=== PATIENT | female | born 2000 | race American Indian/Alaskan Native ===

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

== ENCOUNTER 2019-04-28 15:31 | Emergency (ER) | payer MEDICAID ==
--- NOTE | 2019-04-28 15:52 | Event Note ---
ED Screening Note ED Screening Note: SIMPLE DYSURIA NO CONCERN FOR STI This initial assessment/diagnostic orders/clinical plan/treatment(s) is/are subject to change based on patients health status, clinical progression and re- assessment by fellow clinical providers in the ED. Further treatment and workup at subsequent clinical providers discretion. Patient/guardian urged not to elope from the ED as their condition may be serious if not clinically assessed and managed. Initial orders include: UA UPREG
[2019-04-28 17:11] LABS: Mucus,Urine 1+ /HPF
[2019-04-28 17:16] LABS: HCG Qualitative,Urine Negative (Negative)
[2019-04-28 17:24] LABS: Bacteria,Urine 2+ /HPF (Negative); Bilirubin,Urine NEG (Negative); Blood,Urine MOD (Negative); Color,Urine Yellow (Yellow)
[2019-04-28 17:30] LABS: WBC,Urine > 182.0 /HPF (0.0-6.0)
--- NOTE | 2019-04-28 17:42 | Emergency Department Report ---
ED Female HPI - General Chief complaint: Urogenital-Female Stated complaint: FREQUENT URINATION Time Seen by Provider: 04/28/19 15:51 Source: patient Mode of arrival: Ambulatory Limitations: No Limitations - History of Present Illness Initial comments: This is a 19-year-old -[place] female who presents to the emergency room urinary frequency and suprapubic pressure for 3-4 days. No significant past medical history. Last menstrual period was 04/12/2019, A0. Patient denies any vaginal discharge, dysuria, nausea, vomiting, or back pain. MD Complaint: other (urinary frequency) Onset/Timin -: days(s) Location: suprapubic Radiation: non-radiating Severity: mild Severity scale (0 -10): 3 Quality: other (pressure) Consistency: intermittent Improves with: none Worsens with: urination Are you Now?: No Last Menstrual Period: 04/12/19 EDC: 01/17/20 Associated Symptoms: abdominal pain. denies: vaginal discharge, vaginal bleeding, nausea/vomiting, fever/chills, headaches, loss of appetite, dysuria, hematuria, rash, seizure, shortness of breath, syncope, weakness - Related Data Sexually active: Yes : 1 Para: 1 A: 0 Previous Rx's Medication Instructions Recorded Last Taken Type Acetaminophen/Codeine [Tylenol #3] 1 tab PO Q6H PRN #7 tab 08/26/16 Unknown Rx Ondansetron [Zofran Odt] 4 mg PO Q6HR PRN #14 tab.rapdis 08/26/16 Unknown Rx Nitrofurantoin [place]/M-Cryst 100 mg PO Q12HR #10 capsule 04/28/19 Unknown Rx [Macrobid CAP] Allergies Allergy/AdvReac Type Severity Reaction Status Date / Time No Known Allergies Allergy Verified 04/28/19 15:35 ED Review of Systems ROS: Stated complaint: FREQUENT URINATION Other details as noted in HPI Constitutional: denies: chills, fever Respiratory: denies: cough, shortness of breath, wheezing Cardiovascular: denies: chest pain, palpitations Gastrointestinal: abdominal pain. denies: nausea, diarrhea Genitourinary: frequency. denies: urgency, dysuria, discharge Musculoskeletal: denies: back pain, joint swelling, arthralgia Skin: denies: rash, lesions Neurological: denies: headache, weakness, paresthesias ED Past Medical Hx - Past Medical History Hx Hypertension: No Hx Diabetes: No Hx Deep Vein Thrombosis: No Hx Renal Disease: No Hx Sickle Cell Disease: No Hx Seizures: No Hx Asthma: No Hx HIV: No - Surgical History Past Surgical History?: No - Social History Smoking Status: Never Smoker Substance Use Type: None - Medications Home Medications: Home Medications Medication Instructions Recorded Confirmed Last Taken Type Acetaminophen/Codeine [Tylenol #3] 1 tab PO Q6H PRN #7 tab 08/26/16 Unknown Rx Ondansetron [Zofran Odt] 4 mg PO Q6HR PRN #14 tab.rapdis 08/26/16 Unknown Rx Nitrofurantoin [place]/M-Cryst 100 mg PO Q12HR #10 capsule 04/28/19 Unknown Rx [Macrobid CAP] ED Physical Exam - General Limitations: No Limitations General appearance: alert, in no apparent distress - Respiratory Respiratory exam: Present: normal lung sounds bilaterally. Absent: respiratory distress - Cardiovascular Cardiovascular Exam: Present: regular rate, normal rhythm. Absent: systolic murmur, diastolic murmur, rubs, gallop - GI/Abdominal GI/Abdominal exam: Present: soft, normal bowel sounds. Absent: distended, tenderness, guarding, rebound, rigid - Back Exam Back exam: Absent: CVA tenderness (R), CVA tenderness (L) - Neurological Exam Neurological exam: Present: alert, oriented X3 - Psychiatric Psychiatric exam: Present: normal affect, normal mood - Skin Skin exam: Present: warm, dry, intact, normal color. Absent: rash ED Course Vital Signs 04/28/19 15:52 Temperature 98.6 F Pulse Rate 65 Respiratory 16 Rate Blood Pressure 128/62 O2 Sat by Pulse 100 Oximetry ED Medical Decision Making - Lab Data Lab Results 04/28/19 Range/Units 16:44 Urine Color Yellow (Yellow) Urine Turbidity Cloudy (Clear) Urine pH 6.0 (5.0-7.0) Ur Specific [place] 1.026 (1.003-1.030) Urine Protein 100 mg/dl (Negative) mg/dL Urine Glucose (UA) Neg (Negative) mg/dL Urine Ketones Neg (Negative) mg/dL Urine Blood Mod (Negative) Urine Nitrite Neg (Negative) Urine Bilirubin Neg (Negative) Urine Ictotest Not Reportable Urine Urobilinogen 4.0 (<2.0) mg/dL Ur Leukocyte Esterase Lg (Negative) Urine WBC (Auto) > 182.0 H (0.0-6.0) /HPF Urine RBC (Auto) 40.0 (0.0-6.0) /HPF U Epithel Cells (Auto) 7.0 (0-13.0) /HPF Urine Bacteria (Auto) 2+ (Negative) /HPF Urine WBC Clumps 2+ /HPF Urine Mucus 1+ /HPF Urine Yeast (Budding) 2+ /HPF Urine HCG, Qual Negative (Negative) - Medical Decision Making Patient was examined by me. Patient is nontoxic appearing and stable. Vitals are normal. Obtained urinalysis and test. test is negative. Urinalysis positive for acute cystitis. Start metronidazole. Instructed to take Motrin for pain. Follow up with PCP or smart energy specialist with worsening symptoms. Patient discharged home in stable condition. Critical care attestation.: If time is entered above; I have spent that time in minutes in the direct care of this critically ill patient, excluding procedure time. ED Disposition Clinical Impression: Urinary frequency Acute cystitis Qualifiers: Hematuria presence: with hematuria Qualified Code(s): N30.01 - Acute cystitis with hematuria Disposition: TO HOME OR SELFCARE Is pt being admited?: No Does the pt Need Aspirin: No Condition: Stable Instructions: Urinary Tract Infection in Women (ED) Additional Instructions: Increased water intake. Complete full course of antibiotics as prescribed. Follow-up with the primary care doctor or return to the emergency room with worsening symptoms. Prescriptions: Nitrofurantoin [place]/M-Cryst [Macrobid CAP] 100 mg PO Q12HR #10 capsule Referrals: [facility] [Outside] - 3-5 Days [facility] [Outside] - 3-5 Days [facility] [Outside] - 3-5 Days Forms: Work/School Release Form(ED) Time of Disposition: 17:58
[2019-04-28 18:35] VITALS: BP 107/62
== END 2019-04-28 18:35 | disposition home or self-care (01) ==
LOC: ED 15:31
DX: N30.01 Acute cystitis with hematuria (principal)
CPT/HCPCS: 81001; 81025

== ENCOUNTER 2019-06-23 13:06 | Emergency (ER) | payer SELFPAY ==
[2019-06-23] MEDS ORDERED: REGLAN IV ONE (13:42)
[2019-06-23] MEDS ORDERED: BENADRYL IV STA (13:45)
[2019-06-23] MEDS ORDERED: NACL 0.9% 1000 ML 1,000 ML IV ONE (13:45)
[2019-06-23] MEDS ORDERED: VITAMIN B-6 PO STA (13:45)
--- NOTE | 2019-06-23 13:46 | Emergency Department Report ---
Blank Doc - Documentation Documentation: with Hyperemesis for the last 2 days. No abdominal pain This initial assessment/diagnostic orders/clinical plan/treatment(s) is/are subject to change based on patient's health status, clinical progression and re- assessment by fellow clinical providers in the ED. Further treatment and workup at subsequent clinical providers discretion. Patient/guardians urged not to elope from the ED as their condition may be serious if not clinically assessed and managed. Initial orders include: Labs and fluids
[2019-06-23 15:04] LABS: Basophils % (Auto) 0.3 % (0.0-1.8); Eosinophils % (Auto) 0.3 % (0.0-4.3); Hematocrit 39.3 % (30.3-42.9); Hemoglobin 13.3 gm/dl (10.1-14.3); Lymphocytes # (Auto) 1.9 K/mm3 (1.2-5.4); Lymphocytes % (Auto) 26.4 % (13.4-35.0); Mean Corpuscular HGB Conc 34 % (30-34); Mean Corpuscular Volume 88 fl (79-97); Monocytes # (Auto) 0.6 K/mm3 (0.0-0.8); Platelet Count 310 K/mm3 (140-440); Red Blood Count 4.47 M/mm3 (3.65-5.03); Red Cell Distribution Width 12.8 % (13.2-15.2)
[2019-06-23 15:06] LABS: Bilirubin,Urine Negative (Negative); Color,Urine Yellow (Yellow)
[2019-06-23 15:08] LABS: Blood,Urine Negative (Negative); Urobilinogen,Urine < 2.0 mg/dL (<2.0)
[2019-06-23 15:13] LABS: Bacteria,Urine 1+ /HPF (Negative); Mucus,Urine 3+ /HPF
[2019-06-23 15:14] LABS: Alanine Aminotransferase 11 units/L (7-56); Albumin 4.5 g/dL (3.9-5); BUN/Creatinine Ratio 14; Blood Urea Nitrogen 10 mg/dL (7-17); Calcium 9.5 mg/dL (8.4-10.2); Hemolysis Index 0
[2019-06-23 15:32] LABS: Bilirubin,Direct < 0.2 mg/dL (0-0.2)
[2019-06-23] MEDS ORDERED: D5NS 1,000 ML IV SCH (16:00)
--- NOTE | 2019-06-23 17:29 | Emergency Department Report ---
ED N/V/D HPI - General Chief complaint: Abdominal Pain Stated complaint: VOMITTING Time Seen by Provider: 06/23/19 13:41 Source: patient Mode of arrival: Ambulatory Limitations: No Limitations - History of Present Illness Initial comments: Patient is a 19-year-old [place] female who is approximately 7 weeks who is here stating that she said nausea vomiting or inability to keep anything down for past 3 days. Patient denies painful urination and vaginal bleeding or vaginal discharge. Patient states that she only has some very mild crampy di ffuse abdominal discomfort. - Related Data Previous Rx's Medication Instructions Recorded Last Taken Type Acetaminophen/Codeine [Tylenol #3] 1 tab PO Q6H PRN #7 tab 08/26/16 Unknown Rx Ondansetron [Zofran Odt] 4 mg PO Q6HR PRN #14 tab.rapdis 08/26/16 Unknown Rx Nitrofurantoin [place]/M-Cryst 100 mg PO Q12HR #10 capsule 04/28/19 Unknown Rx [Macrobid CAP] Metoclopramide [Reglan] 10 mg PO TID PRN #12 tab 06/23/19 Unknown Rx Allergies Allergy/AdvReac Type Severity Reaction Status Date / Time No Known Allergies Allergy Verified 04/28/19 15:35 ED Review of Systems ROS: Stated complaint: VOMITTING Other details as noted in HPI Comment: All other systems reviewed and negative ED Past Medical Hx - Past Medical History Previous Medical History?: No Hx Hypertension: No Hx Diabetes: No Hx Deep Vein Thrombosis: No Hx Renal Disease: No Hx Sickle Cell Disease: No Hx Seizures: No Hx Asthma: No Hx HIV: No - Surgical History Past Surgical History?: No - Social History Smoking Status: Never Smoker Substance Use Type: None - Medications Home Medications: Home Medications Medication Instructions Recorded Confirmed Last Taken Type Acetaminophen/Codeine [Tylenol #3] 1 tab PO Q6H PRN #7 tab 08/26/16 Unknown Rx Ondansetron [Zofran Odt] 4 mg PO Q6HR PRN #14 tab.rapdis 08/26/16 Unknown Rx Nitrofurantoin [place]/M-Cryst 100 mg PO Q12HR #10 capsule 04/28/19 Unknown Rx [Macrobid CAP] Metoclopramide [Reglan] 10 mg PO TID PRN #12 tab 10/25/19 Unknown Rx ED Physical Exam - General Limitations: No Limitations General appearance: alert, in no apparent distress - Head Head exam: Present: atraumatic, normocephalic - Eye Eye exam: Present: normal appearance. Absent: PERRL, EOMI - ENT ENT exam: Present: mucous membranes moist - Neck Neck exam: Present: normal inspection - Respiratory Respiratory exam: Present: normal lung sounds bilaterally. Absent: respiratory distress, wheezes, rales, rhonchi - Cardiovascular Cardiovascular Exam: Present: regular rate, normal rhythm. Absent: systolic murmur, diastolic murmur, rubs, gallop - GI/Abdominal GI/Abdominal exam: Present: soft, normal bowel sounds. Absent: distended, tenderness, guarding, rebound - Extremities Exam Extremities exam: Present: normal inspection - Back Exam Back exam: Present: normal inspection - Neurological Exam Neurological exam: Present: alert, oriented X3 - Psychiatric Psychiatric exam: Present: normal affect, normal mood - Skin Skin exam: Present: warm, dry, intact, normal color. Absent: rash ED Course Vital Signs 06/23/19 13:37 Temperature 98.1 F Pulse Rate 72 Respiratory 16 Rate Blood Pressure 123/65 O2 Sat by Pulse 98 Oximetry ED Medical Decision Making - Lab Data Result diagrams: 06/23/19 14:18 06/23/19 14:18 - Medical Decision Making Patient was hydrated given antiemetics and she is feeling better and was able tolerate by mouth towards the end of her ED visit. Critical care attestation.: If time is entered above; I have spent that time in minutes in the direct care of this critically ill patient, excluding procedure time. ED Disposition Clinical Impression: Hyperemesis gravidarum Disposition: TO HOME OR SELFCARE Is pt being admited?: No Does the pt Need Aspirin: No Condition: Stable Instructions: Abdominal Pain (ED) Referrals: PRIMARY CARE, [Primary Care Provider] - 3-5 Days Time of Disposition: 17:30
[2019-06-23 17:46] VITALS: BP 99/57
== END 2019-06-23 17:45 | disposition home or self-care (01) ==
LOC: ED 13:06
DX: O21.0 Mild hyperemesis gravidarum (principal); Z3A.01 Less than 8 weeks gestation of pregnancy; Z79.899 Other long term (current) drug therapy
CPT/HCPCS: 36415; 80048; 80076; 81001; 83690; 84702; 85025; 96374; 96375; 99283; J1200; J2765; J7030

== ENCOUNTER 2019-06-25 21:53 | Emergency (ER) | payer MEDICAID ==
--- NOTE | 2019-06-25 21:59 | Event Note ---
ED Screening Note ED Screening Note: pt presents for N/V that began 5 days ago was evaluated in the ED previously, states the medication is not working no diarrhea no vaginal bleeding no urinary sx LNMP: may 05 SALES DEVELOPMENT SPECIALIST: [facility] /P:1/A:0 no pmhx no allergies to meds This initial assessment/diagnostic orders/clinical plan/treatment(s) is/are subject to change based on patients health status, clinical progression and re- assessment by fellow clinical providers in the ED. Further treatment and workup at subsequent clinical providers discretion. Patient/guardian urged not to elope from the ED as their condition may be serious if not clinically assessed and managed. Initial orders include: labs, UA
[2019-06-25 22:32] LABS: Bilirubin,Urine NEG (Negative); Blood,Urine NEG (Negative); Color,Urine Amber (Yellow); Mucus,Urine 3+ /HPF
[2019-06-25] MEDS ORDERED: SODIUM CHLORIDE 0.9% 1000 ML 1,000 ML IV ONE (22:33)
[2019-06-25 22:48] LABS: Basophils % (Auto) 0.6 % (0.0-1.8); Eosinophils % (Auto) 0.2 % (0.0-4.3); Hematocrit 37.7 % (30.3-42.9); Hemoglobin 12.7 gm/dl (10.1-14.3); Lymphocytes # (Auto) 2.5 K/mm3 (1.2-5.4); Lymphocytes % (Auto) 28.3 % (13.4-35.0); Mean Corpuscular HGB Conc 34 % (30-34); Mean Corpuscular Volume 88 fl (79-97); Monocytes # (Auto) 0.8 K/mm3 (0.0-0.8); Monocytes % (Auto) 8.5 % (0.0-7.3); Platelet Count 287 K/mm3 (140-440); Red Blood Count 4.28 M/mm3 (3.65-5.03); Red Cell Distribution Width 12.5 % (13.2-15.2)
[2019-06-25 22:49] LABS: Basophils # (Auto) 0.1 K/mm3 (0.0-0.1)
[2019-06-25 22:55] LABS: Alanine Aminotransferase 10 units/L (7-56); Albumin 4.5 g/dL (3.9-5); BUN/Creatinine Ratio 13; Blood Urea Nitrogen 9 mg/dL (7-17); Calcium 9.5 mg/dL (8.4-10.2); Hemolysis Index 1
[2019-06-25] MEDS ORDERED: DEXTROSE 5% IN WATER 1,000 ML IV SCH (23:00)
--- NOTE | 2019-06-25 23:14 | Emergency Department Report ---
ED N/V/D HPI - General Chief complaint: Nausea/Vomiting/Diarrhea Stated complaint: NAUSEA,DEHYDRATED,VOMITING Time Seen by Provider: 06/25/19 21:57 Source: patient Mode of arrival: Ambulatory Limitations: No Limitations - History of Present Illness Initial comments: 19-year-old -[place] female patient complains of continued nausea and vomiting despite medication given from ED. Patient was seen here 06/23/2019 for hyperemesis gravidarum and was prescribed Reglan for home. Patient states his medication is not controlling her nausea and vomiting. She states mild general abdominal cramping. She denies dysuria, urinary frequency, vaginal discharge, or vaginal bleeding. - Related Data Previous Rx's Medication Instructions Recorded Last Taken Type Acetaminophen/Codeine [Tylenol #3] 1 tab PO Q6H PRN #7 tab 08/26/16 Unknown Rx Ondansetron [Zofran Odt] 4 mg PO Q6HR PRN #14 tab.rapdis 08/26/16 Unknown Rx Nitrofurantoin [place]/M-Cryst 100 mg PO Q12HR #10 capsule 04/28/19 Unknown Rx [Macrobid CAP] Metoclopramide [Reglan] 10 mg PO TID PRN #12 tab 06/23/19 Unknown Rx Promethazine HCl [Promethazine TAB] 12.5 - 25 mg PO Q6H PRN #30 tablet 06/26/19 Unknown Rx Allergies Allergy/AdvReac Type Severity Reaction Status Date / Time No Known Allergies Allergy Verified 04/28/19 15:35 ED Review of Systems ROS: Stated complaint: NAUSEA,DEHYDRATED,VOMITING Other details as noted in HPI Constitutional: denies: chills, fever Respiratory: denies: cough, shortness of breath, wheezing Cardiovascular: denies: chest pain, palpitations Gastrointestinal: as per HPI Genitourinary: denies: urgency, dysuria, frequency, hematuria, discharge Musculoskeletal: denies: back pain, joint swelling, arthralgia Skin: denies: rash, lesions Neurological: denies: headache, weakness, paresthesias ED Past Medical Hx - Past Medical History Previous Medical History?: No Hx Hypertension: No Hx Diabetes: No Hx Deep Vein Thrombosis: No Hx Renal Disease: No Hx Sickle Cell Disease: No Hx Seizures: No Hx Asthma: No Hx HIV: No - Surgical History Past Surgical History?: No - Social History Smoking Status: Never Smoker Substance Use Type: None - Medications Home Medications: Home Medications Medication Instructions Recorded Confirmed Last Taken Type Acetaminophen/Codeine [Tylenol #3] 1 tab PO Q6H PRN #7 tab 08/26/16 Unknown Rx Ondansetron [Zofran Odt] 4 mg PO Q6HR PRN #14 tab.rapdis 08/26/16 Unknown Rx Nitrofurantoin [place]/M-Cryst 100 mg PO Q12HR #10 capsule 04/28/19 Unknown Rx [Macrobid CAP] Metoclopramide [Reglan] 10 mg PO TID PRN #12 tab 06/23/19 Unknown Rx Promethazine HCl [Promethazine TAB] 12.5 - 25 mg PO Q6H PRN #30 tablet 06/26/19 Unknown Rx ED Physical Exam - General Limitations: No Limitations General appearance: alert, in no apparent distress - Head Head exam: Present: atraumatic, normocephalic - Eye Eye exam: Present: normal appearance - Respiratory Respiratory exam: Present: normal lung sounds bilaterally. Absent: respiratory distress - Cardiovascular Cardiovascular Exam: Present: regular rate, normal rhythm, normal heart sounds - GI/Abdominal GI/Abdominal exam: Present: soft, tenderness (minimal, diffuse, superficial ), normal bowel sounds. Absent: distended, guarding, rebound, rigid - Back Exam Back exam: Present: full ROM - Neurological Exam Neurological exam: Present: alert, oriented X3 - Psychiatric Psychiatric exam: Present: normal affect, normal mood - Skin Skin exam: Present: warm, dry, intact, normal color. Absent: rash, diaphoretic ED Course Vital Signs 06/25/19 21:58 Temperature 98.3 F Pulse Rate 77 Respiratory 20 Rate Blood Pressure 123/60 O2 Sat by Pulse 100 Oximetry ED Medical Decision Making - Lab Data Result diagrams: 06/25/19 22:27 06/25/19 22:27 Lab Results 06/25/19 06/25/19 06/25/19 Range/Units 22:09 22:27 22:27 WBC 8.9 (4.5-11.0) K/mm3 RBC 4.28 (3.65-5.03) M/mm3 Hgb 12.7 (10.1-14.3) gm/dl Hct 37.7 (30.3-42.9) % MCV 88 (79-97) fl MCH 30 (28-32) pg MCHC 34 (30-34) % RDW 12.5 L (13.2-15.2) % Plt Count 287 (140-440) K/mm3 Lymph % (Auto) 28.3 (13.4-35.0) % [place] % (Auto) 8.5 H (0.0-7.3) % Eos % (Auto) 0.2 (0.0-4.3) % Baso % (Auto) 0.6 (0.0-1.8) % Lymph # 2.5 (1.2-5.4) K/mm3 [place] # 0.8 (0.0-0.8) K/mm3 Eos # 0.0 (0.0-0.4) K/mm3 Baso # 0.1 (0.0-0.1) K/mm3 Seg Neutrophils % 62.4 (40.0-70.0) % Seg Neutrophils # 5.5 (1.8-7.7) K/mm3 Sodium 137 (137-145) mmol/L Potassium 3.5 L (3.6-5.0) mmol/L Chloride 98.7 (98-107) mmol/L Carbon Dioxide 23 (22-30) mmol/L Anion Gap 19 mmol/L BUN 9 (7-17) mg/dL Creatinine 0.7 (0.7-1.2) mg/dL Estimated GFR > 60 ml/min BUN/Creatinine Ratio 13 % Glucose 106 H (65-100) mg/dL Calcium 9.5 (8.4-10.2) mg/dL Total Bilirubin 0.50 (0.1-1.2) mg/dL AST 15 (5-40) units/L ALT 10 (7-56) units/L Alkaline Phosphatase 49 (35-129) units/L Total Protein 8.7 H (6.3-8.2) g/dL Albumin 4.5 (3.9-5) g/dL Albumin/Globulin Ratio 1.1 % Lipase 33 (13-60) units/L HCG, Quant (0-4) mIU/mL Urine Color [place] (Yellow) Urine Turbidity Slightly-cloudy (Clear) Urine pH 6.0 (5.0-7.0) Ur Specific [place] 1.034 H (1.003-1.030) Urine Protein 100 mg/dl (Negative) mg/dL Urine Glucose (UA) Neg (Negative) mg/dL Urine Ketones 80 (Negative) mg/dL Urine Blood Neg (Negative) Urine Nitrite Neg (Negative) Urine Bilirubin Neg (Negative) Urine Urobilinogen 4.0 (<2.0) mg/dL Ur Leukocyte Esterase Tr (Negative) Urine WBC (Auto) 16.0 H (0.0-6.0) /HPF Urine RBC (Auto) 8.0 (0.0-6.0) /HPF U Epithel Cells (Auto) 16.0 H (0-13.0) /HPF Urine Mucus 3+ /HPF 06/25/ Range/Units 22:27 WBC (4.5-11.0) K/mm3 RBC (3.65-5.03) M/mm3 Hgb (10.1-14.3) gm/dl Hct (30.3-42.9) % MCV (79-97) fl MCH (28-32) pg MCHC (30-34) % RDW (13.2-15.2) % Plt Count (140-440) K/mm3 Lymph % (Auto) (13.4-35.0) % [place] % (Auto) (0.0-7.3) % Eos % (Auto) (0.0-4.3) % Baso % (Auto) (0.0-1.8) % Lymph # (1.2-5.4) K/mm3 [place] # (0.0-0.8) K/mm3 Eos # (0.0-0.4) K/mm3 Baso # (0.0-0.1) K/mm3 Seg Neutrophils % (40.0-70.0) % Seg Neutrophils # (1.8-7.7) K/mm3 Sodium (137-145) mmol/L Potassium (3.6-5.0) mmol/L Chloride (98-107) mmol/L Carbon Dioxide (22-30) mmol/L Anion Gap mmol/L BUN (7-17) mg/dL Creatinine (0.7-1.2) mg/dL Estimated GFR ml/min BUN/Creatinine Ratio % Glucose (65-100) mg/dL Calcium (8.4-10.2) mg/dL Total Bilirubin (0.1-1.2) mg/dL AST (5-40) units/L ALT (7-56) units/L Alkaline Phosphatase (35-129) units/L Total Protein (6.3-8.2) g/dL Albumin (3.9-5) g/dL Albumin/Globulin Ratio % Lipase (13-60) units/L HCG, Quant [id number] H (0-4) mIU/mL Urine Color (Yellow) Urine Turbidity (Clear) Urine pH (5.0-7.0) Ur Specific [place] (1.003-1.030) Urine Protein (Negative) mg/dL Urine Glucose (UA) (Negative) mg/dL Urine Ketones (Negative) mg/dL Urine Blood (Negative) Urine Nitrite (Negative) Urine Bilirubin (Negative) Urine Urobilinogen (<2.0) mg/dL Ur Leukocyte Esterase (Negative) Urine WBC (Auto) (0.0-6.0) /HPF Urine RBC (Auto) (0.0-6.0) /HPF U Epithel Cells (Auto) (0-13.0) /HPF Urine Mucus /HPF - Medical Decision Making Patient here for hyperemesis gravidarum. Seen here for same 06/23/2019. States Reglan described for home is not working. No acute findings on blood work. Vitals are WNL. UA shows 16 WBCs, however also shows 16 epithelial cellslikely a dirty catch. Patient denies any dysuria or urinary frequency. Urine culture added. Patient tolerating by mouth after IV Reglan and Benadryl. Will DC home with Phenergan prescription and with STATE COMPTR[employer]LLER follow-up. Strict return precautions were discussed in detail with patient who states understanding. Critical care attestation.: If time is entered above; I have spent that time in minutes in the direct care of this critically ill patient, excluding procedure time. ED Disposition Clinical Impression: Hyperemesis gravidarum Disposition: DC-01 TO HOME OR SELFCARE Is pt being admited?: No Condition: Stable Prescriptions: Promethazine HCl [Promethazine TAB] 12.5 - 25 mg PO Q6H PRN #30 tablet PRN Reason: Nausea Referrals: TATO ALBERTS MD [Primary Care Provider] - 3-5 Days
[2019-06-25] MEDS ORDERED: POTASSIUM CHLORIDE ER 20 MEQ TAB PO ONE (23:15)
[2019-06-26 00:47] VITALS: BP 121/64
== END 2019-06-26 00:46 | disposition home or self-care (01) ==
LOC: ED 21:53
DX: O21.0 Mild hyperemesis gravidarum (principal); Z3A.01 Less than 8 weeks gestation of pregnancy
CPT/HCPCS: 36415; 80053; 81001; 83690; 84702; 85025; 87086; 96360; 99283; J7030

== ENCOUNTER 2019-07-04 16:46 | Emergency (ER) | payer MEDICAID ==
[2019-07-04 17:27] VITALS: BP 124/61
[2019-07-04] MEDS ORDERED: METOCLOPRAMIDE 10 MG/2 ML INJ IV ONE (22:22)
[2019-07-04] MEDS ORDERED: FAMOTIDINE 20 MG/2 ML INJ IV ONE (22:22)
[2019-07-04] MEDS ORDERED: SODIUM CHLORIDE 0.9% 1000 ML 1,000 ML IV ONE (22:22)
[2019-07-04] MEDS ORDERED: diphenhydrAMINE 50 MG/ML VIAL IV ONE (22:23)
[2019-07-04 22:50] LABS: Basophils # (Auto) 0.1 K/mm3 (0.0-0.1); Basophils % (Auto) 0.6 % (0.0-1.8); Eosinophils % (Auto) 0.2 % (0.0-4.3); Hematocrit 39.4 % (30.3-42.9); Hemoglobin 13.6 gm/dl (10.1-14.3); Lymphocytes # (Auto) 2.7 K/mm3 (1.2-5.4); Mean Corpuscular HGB Conc 35 % (30-34); Mean Corpuscular Volume 87 fl (79-97); Monocytes % (Auto) 11.2 % (0.0-7.3); Platelet Count 312 K/mm3 (140-440); Red Blood Count 4.51 M/mm3 (3.65-5.03); Red Cell Distribution Width 12.3 % (13.2-15.2)
[2019-07-04 23:05] LABS: Alanine Aminotransferase 8 units/L (7-56); Albumin 4.4 g/dL (3.9-5); BUN/Creatinine Ratio 18; Blood Urea Nitrogen 9 mg/dL (7-17); Calcium 9.5 mg/dL (8.4-10.2); Hemolysis Index 0
[2019-07-04] MEDS ORDERED: POTASSIUM CHLORIDE ER 20 MEQ TAB PO ONE (23:15)
[2019-07-05 00:57] LABS: Bacteria,Urine 2+ /HPF (Negative); Bilirubin,Urine NEG (Negative); Blood,Urine NEG (Negative); Color,Urine Amber (Yellow); Mucus,Urine 3+ /HPF
[2019-07-05] MEDS ORDERED: cefTRIAXone/NS 1 GM/50 ML 1 GM/50 ML BAG IV ONE (01:00)
--- NOTE | 2019-07-05 01:05 | Emergency Department Report ---
ED N/V/D HPI - General Chief complaint: Abdominal Pain Stated complaint: NAUSEA/WEAK/LIGHTHEADED/LOSS OF APPITITE/BACK PAIN Source: patient Mode of arrival: Ambulatory Limitations: No Limitations - History of Present Illness Initial comments: Patient is a A0 19-year-old, female who is approximately 9 weeks gestation presents to the ED with complaint of acute onset persistent intractable nausea and vomiting for the last 3 days with epigastric pain. Patient denies fever, c hills, diarrhea, dysuria, urinary frequency and urgency, vaginal bleeding, vaginal discharge, headache, chest pain, cough, sore throat or dizziness or back pain. MD complaint: nausea, vomiting, abdominal pain -: Sudden, days(s) (3) Description of Vomiting: food contents, watery Associated Abdominal Pain: Yes (epigastric pain) Location: epigastric Radiation: none Severity: severe Pain Scale: 7 Quality: cramping, aching Consistency: intermittent Improves with: none Worsens with: eating, vomiting Context: other (9 weeks gestation) Associated Symptoms: denies other symptoms, myalgias, loss of appetite, malaise, nausea/vomiting. denies: chest pain, cough, diaphoresis, fever/chills, headaches, rash, dysuria, shortness of breath, syncope, weakness, other - Related Data Previous Rx's Medication Instructions Recorded Last Taken Type Acetaminophen/Codeine [Tylenol #3] 1 tab PO Q6H PRN #7 tab 08/26/16 Unknown Rx Ondansetron [Zofran Odt] 4 mg PO Q6HR PRN #14 tab.rapdis 08/26/16 Unknown Rx Nitrofurantoin [place]/M-Cryst 100 mg PO Q12HR #10 capsule 04/28/19 Unknown Rx [Macrobid CAP] Metoclopramide [Reglan] 10 mg PO TID PRN #12 tab 06/23/19 Unknown Rx Promethazine HCl [Promethazine TAB] 12.5 - 25 mg PO Q6H PRN #30 tablet 06/26/19 Unknown Rx Dicyclomine [Bentyl] 20 mg PO Q6H PRN #24 tablet 07/05/19 Unknown Rx Famotidine [Pepcid] 20 mg PO Q12H #30 tablet 07/05/19 Unknown Rx Promethazine HCl [Phenergan SUPPOS] 25 mg RC Q4H PRN #30 supp.rect 07/05/19 Unknown Rx cephALEXin [Keflex] 500 mg PO Q8HR #30 cap 07/05/19 Unknown Rx Allergies Allergy/AdvReac Type Severity Reaction Status Date / Time No Known Allergies Allergy Verified 04/28/19 15:35 ED Review of Systems ROS: Stated complaint: NAUSEA/WEAK/LIGHTHEADED/LOSS OF APPITITE/BACK PAIN Other details as noted in HPI Constitutional: denies: chills, fever Eyes: denies: eye pain, eye discharge, vision change ENT: denies: ear pain, throat pain Respiratory: denies: cough, shortness of breath, wheezing Cardiovascular: denies: chest pain, palpitations Endocrine: no symptoms reported Gastrointestinal: abdominal pain, nausea, vomiting. denies: diarrhea, constipation, hematemesis Genitourinary: denies: urgency, dysuria, frequency, hematuria, discharge, dyspareunia Musculoskeletal: denies: back pain, joint swelling, arthralgia Skin: denies: rash, lesions Neurological: denies: headache, weakness, paresthesias Psychiatric: denies: anxiety, depression Hematological/Lymphatic: denies: easy bleeding, easy bruising ED Past Medical Hx - Past Medical History Hx Hypertension: No Hx Diabetes: No Hx Deep Vein Thrombosis: No Hx Renal Disease: No Hx Sickle Cell Disease: No Hx Seizures: No Hx Asthma: No Hx HIV: No - Surgical History Past Surgical History?: No - Social History Smoking Status: Never Smoker Substance Use Type: None - Medications Home Medications: Home Medications Medication Instructions Recorded Confirmed Last Taken Type Acetaminophen/Codeine [Tylenol #3] 1 tab PO Q6H PRN #7 tab 08/26/16 Unknown Rx Ondansetron [Zofran Odt] 4 mg PO Q6HR PRN #14 tab.rapdis 08/26/16 Unknown Rx Nitrofurantoin [place]/M-Cryst 100 mg PO Q12HR #10 capsule 04/28/19 Unknown Rx [Macrobid CAP] Metoclopramide [Reglan] 10 mg PO TID PRN #12 tab 06/23/19 Unknown Rx Promethazine HCl [Promethazine TAB] 12.5 - 25 mg PO Q6H PRN #30 tablet 06/26/19 Unknown Rx Dicyclomine [Bentyl] 20 mg PO Q6H PRN #24 tablet 07/05/19 Unknown Rx Famotidine [Pepcid] 20 mg PO Q12H #30 tablet 07/05/19 Unknown Rx Promethazine HCl [Phenergan SUPPOS] 25 mg RC Q4H PRN #30 supp.rect 07/05/19 Unknown Rx cephALEXin [Keflex] 500 mg PO Q8HR #30 cap 07/05/19 Unknown Rx ED Physical Exam - General Limitations: No Limitations General appearance: alert, in no apparent distress - Head Head exam: Present: atraumatic, normocephalic, normal inspection - Eye Eye exam: Present: normal appearance, PERRL, EOMI Pupils: Present: normal accommodation - ENT ENT exam: Present: normal exam, normal orophraynx, mucous membranes moist, TM's normal bilaterally, normal external ear exam - Neck Neck exam: Present: normal inspection, full ROM - Respiratory Respiratory exam: Present: normal lung sounds bilaterally. Absent: respiratory distress, wheezes, rales, rhonchi, stridor, chest wall tenderness, accessory muscle use, prolonged expiratory - Cardiovascular Cardiovascular Exam: Present: regular rate, normal rhythm, normal heart sounds. Absent: systolic murmur, diastolic murmur, rubs, gallop - GI/Abdominal GI/Abdominal exam: Present: soft, normal bowel sounds. Absent: tenderness, guarding, hyperactive bowel sounds, hypoactive bowel sounds, organomegaly, bruit - Extremities Exam Extremities exam: Present: normal inspection, full ROM, normal capillary refill - Back Exam Back exam: Present: normal inspection, full ROM. Absent: tenderness, CVA tenderness (R), muscle spasm, paraspinal tenderness - Neurological Exam Neurological exam: Present: alert, oriented X3, CN II-XII intact, normal gait, reflexes normal - Psychiatric Psychiatric exam: Present: normal affect, normal mood - Skin Skin exam: Present: warm, dry, intact, normal color. Absent: rash ED Course Vital Signs 07/04/19 17:23 Temperature 98.7 F Pulse Rate 75 Respiratory 18 Rate Blood Pressure 124/61 O2 Sat by Pulse 99 Oximetry - Reevaluation(s) Reevaluation #1: 07/05/19 01:04 This is a A0 19-year-old -Indian female who is approximately 9 weeks gestation and presented to the ED with intractable nausea and vomiting and epigastric pain for 3 days stating that she has not been keep anything down because of nausea and vomiting. Patient states that she has promethazine at home for nausea and vomiting but has not been able to take the medicine because of persistent nausea and vomiting. In the ED, patient is alert and oriented 3 and is not in distress with normal vital signs. Lab test results were reviewed and showed hyponatremia 134 mmol per liter, hypokalemia of 3.1 mmol per liter, [place] [address], lipase level of 68 and urinary tract infection in the urinalysis correct his elevated white blood cell count with a 2+ bacteria in the urine. Patient was treated in the ED for nausea and vomiting, also given normal saline 1 L IV bolus, also given potassium chloride 40 mEq by mouth 1, Rocephin 1 g IV 1 and Pepcid antacids. On reevaluation, patient felt better, with pain and nausea and vomiting resolving. Patient was discharged home on antibiotics, antiemetics and pain medications and advised to follow-up with her [employer] physician in 7-10 days for reevaluation or return to the ED immediately if symptoms get worse. Patient was advised to maintain a clear liquid diet for 12-24 hours and take medications accordingly. ED Medical Decision Making - Lab Data Result diagrams: 07/04/19 22:30 07/04/19 22:30 - Medical Decision Making This is a A0 19-year-old -Indian female who is approximately 9 weeks gestation and presented to the ED with intractable nausea and vomiting and epigastric pain for 3 days stating that she has not been keep anything down because of nausea and vomiting. Patient states that she has promethazine at home for nausea and vomiting but has not been able to take the medicine because of persistent nausea and vomiting. In the ED, patient is alert and oriented 3 and is not in distress with normal vital signs. Lab test results were reviewed and showed hyponatremia 134 mmol per liter, hypokalemia of 3.1 mmol per liter, [place] [address], lipase level of 68 and urinary tract infection in the urinalysis correct his elevated white blood cell count with a 2+ bacteria in the urine. Patient was treated in the ED for nausea and vomiting, also given normal saline 1 L IV bolus, also given potassium chloride 40 mEq by mouth 1, Rocephin 1 g IV 1 and Pepcid antacids. On reevaluation, patient felt better, with pain and nausea and vomiting resolving. Patient was discharged home on antibiotics, antiemetics and pain medications and advised to follow-up with her [employer] physician in 7-10 days for reevaluation or return to the ED immediately if symptoms get worse. Patient was advised to maintain a clear liquid diet for 12-24 hours and take medications accordingly. - Differential Diagnosis Hyperemesis gravidarum; GERD; Acute UTI; Dehydration Critical care attestation.: If time is entered above; I have spent that time in minutes in the direct care of this critically ill patient, excluding procedure time. ED Disposition Clinical Impression: Hyperemesis gravidarum with electrolyte imbalance, Acute urinary tract infection GERD (gastroesophageal reflux disease) Qualifiers: Esophagitis presence: without esophagitis Qualified Code(s): K21.9 - Gastro- esophageal reflux disease without esophagitis Disposition: TO HOME OR SELFCARE Is pt being admited?: No Does the pt Need Aspirin: No Condition: Stable Instructions: Abdominal Pain (ED), Urinary Tract Infection in Women (ED), Acute Nausea and Vomiting (ED) Additional Instructions: Maintain a clear liquid diet for 12-24 hours, take medications and follow up with the [employer] physician in 7-10 days for reevaluation. Return to the ED immediately if symptoms get worse. Prescriptions: Dicyclomine [Bentyl] 20 mg PO Q6H PRN #24 tablet PRN Reason: Pain , Severe (7-10) cephALEXin [Keflex] 500 mg PO Q8HR #30 cap Famotidine [Pepcid] 20 mg PO Q12H #30 tablet Promethazine HCl [Phenergan SUPPOS] 25 mg RC Q4H PRN #30 supp.rect PRN Reason: Nausea Referrals: PRIMARY CARE,MD [Primary Care Provider] - 3-5 Days Forms: Work/School Release Form(ED) Time of Disposition: 01:11 Print Language: TURKISH
== END 2019-07-05 01:33 | disposition home or self-care (01) ==
LOC: ED 16:46
DX: O21.1 Hyperemesis gravidarum with metabolic disturbance (principal); O23.41 Unspecified infection of urinary tract in pregnancy, first trimester; O99.611 Diseases of the digestive system complicating pregnancy, first trimester; K21.9 Gastro-esophageal reflux disease without esophagitis; Z79.899 Other long term (current) drug therapy; Z3A.09 9 weeks gestation of pregnancy
CPT/HCPCS: 36415; 80053; 81001; 83690; 84702; 85025; 87086; 96361; 96365; 96375; 99283; J0696; J1200; J2765; J7030

== ENCOUNTER 2019-07-20 11:13 | Inpatient (IN) | payer SELFPAY ==
--- NOTE | 2019-07-20 12:01 | Event Note ---
ED Screening Note Date of service: 07/20/19 Time: 11:59 ED Screening Note: 19 y o Female female with lmp of 05/05/19 presents with pelvic and back pain x yesterday denies vaginal bleed admits pain with urination This initial assessment/diagnostic orders/clinical plan/treatment(s) is/are nickerson bject to change based on patients health status, clinical progression and re- assessment by fellow clinical providers in the ED. Further treatment and workup at subsequent clinical providers discretion. Patient/guardian urged not to elope from the ED as their condition may be serious if not clinically assessed and managed. Initial orders include: ua, upt US
[2019-07-20] MEDS ORDERED: METOCLOPRAMIDE 10 MG/2 ML INJ IV ONE (13:09)
[2019-07-20] MEDS ORDERED: SODIUM CHLORIDE 0.9% 1000 ML 1,000 ML IV ONE ×2 (13:09→14:07)
[2019-07-20] MEDS ORDERED: ACETAMINOPHEN 325 MG TAB PO ONE (13:09)
[2019-07-20 13:10] LABS: HCG Qualitative,Urine Positive (Negative)
[2019-07-20 13:11] LABS: Basophils % (Auto) 0.6 % (0.0-1.8); Eosinophils % (Auto) 0.3 % (0.0-4.3); Hematocrit 42.6 % (30.3-42.9); Hemoglobin 14.7 gm/dl (10.1-14.3); Lymphocytes # (Auto) 1.6 K/mm3 (1.2-5.4); Lymphocytes % (Auto) 26.7 % (13.4-35.0); Mean Corpuscular HGB Conc 35 % (30-34); Mean Corpuscular Volume 86 fl (79-97); Monocytes # (Auto) 0.6 K/mm3 (0.0-0.8); Monocytes % (Auto) 10.2 % (0.0-7.3); Platelet Count 300 K/mm3 (140-440); Red Blood Count 4.94 M/mm3 (3.65-5.03); Red Cell Distribution Width 12.7 % (13.2-15.2)
[2019-07-20 13:12] LABS: Bacteria,Urine 1+ /HPF (Negative); Bilirubin,Urine NEG (Negative); Blood,Urine MOD (Negative); Color,Urine Yellow (Yellow); Mucus,Urine FEW /HPF
--- NOTE | 2019-07-20 13:22 | Ultrasound Report ---
ULTRASOUND OBSTETRIC INDICATION: Pelvic pain. Estimated clinical gestational age of 10 weeks, 6 days. TECHNIQUE: Transabdominal. COMPARISON: None available. FINDINGS: GESTATIONAL SAC: Well-defined oval shape and intrauterine in location. YOLK SAC: No significant abnormality. EMBRYO/FETUS: There is a single live intrauterine with a BPD of 1.58 cm, consistent with an age of 12 weeks, 2 days and a femur length of 0.74 cm, consistent with an estimated age of 12 weeks, 2 days. The heart rate is 168 bpm. There is a small area of subchorionic hemorrhage measuring 1.0 x 0.4 x 1.8 cm. ADNEXA: An indeterminate complex left ovarian cyst measures 2.1 x 1.2 x 1.4 cm. No additional signifi cant abnormality is seen. FREE FLUID: None. ADDITIONAL FINDINGS: None. IMPRESSION: 1. Single, living intrauterine with estimated sonographic age of 12 weeks, 2 day(s). 2. Small subchorionic hemorrhage. 3. Complex left ovarian cyst as above is likely benign. This finding can be reevaluated on the patien t's next scheduled OB ultrasound. Signer Name: Juan Whitlock MD Signed: 07/20/2019 1:18 PM Workstation Name: [id number]
[2019-07-20 13:32] LABS: BUN/Creatinine Ratio 10; Blood Urea Nitrogen 6 mg/dL (7-17); Calcium 10.1 mg/dL (8.4-10.2); Hemolysis Index 8
[2019-07-20] MEDS ORDERED: POTASSIUM CHLORIDE ER 20 MEQ TAB PO ONE (14:06)
--- NOTE | 2019-07-20 14:40 | Emergency Department Report ---
ED HPI - General Chief complaint: Abdominal Pain Stated complaint: 11 WKS /ABD PAIN Time Seen by Provider: 07/20/19 12:23 Source: patient, EMS Mode of arrival: Wheelchair Limitations: No Limitations - History of Present Illness Initial comments: This is a 19-year-old female nontoxic, well nourished in appearance, no acute signs of distress presents to the ED with c/o of pelvic pain, back pain, nausea and vomiting 1 week. Patient stated she is about 11 weeks . Denies any vaginal bleeding. Patient describes vomiting as food content. Patient denies any abdominal pain, chest pain, short of breath, fever, chills, headache, stiff neck, numbness or tingling. Patient denies any urinary symptoms. Patient denies any diarrhea or constipation. Patient denies any recent travels. Patient denies any drug allergies significant past medical history. MD Complaint: other (pelvic pain, back pain, nausea vomiting) -: week(s) (1) Location: pelvis Radiation: none Severity: mild Severity scale (0 -10): 8 Quality: cramping, aching Consistency: constant Improves with: none Worsens with: none Associated symptoms: nausea/vomiting. denies: vaginal bleeding, vaginal discharge, abdominal pain, dysuria, headache, vision changes, malaise, dysparuenia, rash, seizure, shortness of breath, syncope, weakness Vaginal bleeding: none Pre-estrellita care: none - Related Data Previous Rx's Medication Instructions Recorded Last Taken Type Acetaminophen/Codeine [Tylenol #3] 1 tab PO Q6H PRN #7 tab 08/26/16 Unknown Rx Ondansetron [Zofran Odt] 4 mg PO Q6HR PRN #14 tab.rapdis 08/26/16 Unknown Rx Nitrofurantoin [place]/M-Cryst 100 mg PO Q12HR #10 capsule 04/28/19 Unknown Rx [Macrobid CAP] Metoclopramide [Reglan] 10 mg PO TID PRN #12 tab 06/23/19 Unknown Rx Promethazine HCl [Promethazine TAB] 12.5 - 25 mg PO Q6H PRN #30 tablet 06/26/19 Unknown Rx Dicyclomine [Bentyl] 20 mg PO Q6H PRN #24 tablet 07/05/19 Unknown Rx Famotidine [Pepcid] 20 mg PO Q12H #30 tablet 07/05/19 Unknown Rx Promethazine HCl [Phenergan SUPPOS] 25 mg RC Q4H PRN #30 supp.rect 07/05/19 Unknown Rx cephALEXin [Keflex] 500 mg PO Q8HR #30 cap 07/05/19 Unknown Rx Allergies Allergy/AdvReac Type Severity Reaction Status Date / Time No Known Allergies Allergy Verified 04/28/19 15:35 ED Review of Systems ROS: Stated complaint: 11 WKS /ABD PAIN Other details as noted in HPI Constitutional: denies: chills, fever Eyes: denies: eye pain, eye discharge, vision change ENT: denies: ear pain, throat pain Respiratory: denies: cough, shortness of breath, wheezing Cardiovascular: denies: chest pain, palpitations Endocrine: no symptoms reported Gastrointestinal: nausea, vomiting, other (pelvic pain). denies: abdominal pain, diarrhea Genitourinary: denies: urgency, dysuria, discharge Musculoskeletal: back pain. denies: joint swelling, arthralgia Skin: denies: rash, lesions Neurological: denies: headache, weakness, paresthesias Psychiatric: denies: anxiety, depression Hematological/Lymphatic: denies: easy bleeding, easy bruising ED Past Medical Hx - Past Medical History Previous Medical History?: No Hx Hypertension: No Hx Diabetes: No Hx Deep Vein Thrombosis: No Hx Renal Disease: No Hx Sickle Cell Disease: No Hx Seizures: No Hx Asthma: No Hx HIV: No - Surgical History Past Surgical History?: No - Social History Smoking Status: Never Smoker Substance Use Type: None - Medications Home Medications: Home Medications Medication Instructions Recorded Confirmed Last Taken Type Acetaminophen/Codeine [Tylenol #3] 1 tab PO Q6H PRN #7 tab 08/26/16 Unknown Rx Ondansetron [Zofran Odt] 4 mg PO Q6HR PRN #14 tab.rapdis 08/26/16 Unknown Rx Nitrofurantoin [place]/M-Cryst 100 mg PO Q12HR #10 capsule 04/28/19 Unknown Rx [Macrobid CAP] Metoclopramide [Reglan] 10 mg PO TID PRN #12 tab 06/23/19 Unknown Rx Promethazine HCl [Promethazine TAB] 12.5 - 25 mg PO Q6H PRN #30 tablet 06/26/19 Unknown Rx Dicyclomine [Bentyl] 20 mg PO Q6H PRN #24 tablet 07/05/19 Unknown Rx Famotidine [Pepcid] 20 mg PO Q12H #30 tablet 07/05/19 Unknown Rx Promethazine HCl [Phenergan SUPPOS] 25 mg RC Q4H PRN #30 supp.rect 07/05/19 Unknown Rx cephALEXin [Keflex] 500 mg PO Q8HR #30 cap 07/05/19 Unknown Rx ED Physical Exam - General Limitations: No Limitations General appearance: alert, in no apparent distress - Head Head exam: Present: atraumatic, normocephalic - Eye Eye exam: Present: normal appearance - Neck Neck exam: Present: normal inspection, full ROM. Absent: tenderness, meningismus, lymphadenopathy - Respiratory Respiratory exam: Present: normal lung sounds bilaterally. Absent: respiratory distress, wheezes, rales, rhonchi, stridor, chest wall tenderness, accessory muscle use, decreased breath sounds, prolonged expiratory - Cardiovascular Cardiovascular Exam: Present: regular rate, normal rhythm, tachycardia, normal heart sounds. Absent: irregular rhythm - GI/Abdominal GI/Abdominal exam: Present: soft, normal bowel sounds. Absent: distended, tenderness, guarding, rebound, rigid, diminished bowel sounds - Extremities Exam Extremities exam: Present: normal inspection, full ROM, normal capillary refill. Absent: tenderness - Back Exam Back exam: Present: normal inspection, full ROM, paraspinal tenderness (lumbar paraspinal). Absent: tenderness, CVA tenderness (R), CVA tenderness (L), muscle spasm, vertebral tenderness, rash noted - Neurological Exam Neurological exam: Present: alert, oriented X3, normal gait - Psychiatric Psychiatric exam: Present: normal affect, normal mood - Skin Skin exam: Present: warm, dry, intact, normal color. Absent: rash ED Course Vital Signs 07/20/19 11:58 Temperature 98.4 F Pulse Rate 100 H Respiratory 18 Rate Blood Pressure 105/69 O2 Sat by Pulse 100 Oximetry - Reevaluation(s) Reevaluation #1: 07/20/19 14:38 Patient is speaking in full sentences with no signs of distress noted. - Consultations Consultation #1: 07/20/19 14:38 Patient has been consulted with Josie Pereira about patient history, physical exam, and labs and agrees for admission. Consultation #2: 07/20/19 15:25 Patient has been consulted with Dr. Moseley about patient history, physical exam, and labs and accepts patient to services. ED Medical Decision Making - Lab Data Result diagrams: 07/20/19 12:53 07/20/19 12:53 - Medical Decision Making This is a 19-year-old female that presents with hyperemesis gravidarum.. Patient is stable and was examined by me. There is no abdominal tenderness. Negative signs of symptoms of appendicitis, cholecystitis or acute abdomen. OB ultrasound obtained and within normal limits. Patient is admitted with Dr. Landeros. Labs obtained. UA obtained. At time of admission, the patient does not seem toxic or ill in appearance. No acute signs of distress noted. Patient agrees to admission treatment plan of care. No further questions noted by the patient. Critical care attestation.: If time is entered above; I have spent that time in minutes in the direct care of this critically ill patient, excluding procedure time. ED Disposition Clinical Impression: Metabolic acidosis, Hyperemesis gravidarum Disposition: OP ADMIT IP TO THIS HOSP Is pt being admited?: Yes Condition: Stable Referrals: PRIMARY CARE, [Primary Care Provider] - 3-5 Days
[2019-07-20] MEDS ORDERED: SODIUM CHLORIDE 0.9% 100 ML IVPB IV SCH (18:04)
[2019-07-20] MEDS: SODIUM CHLORIDE 0.9% 1000 ML 1,000 ML IV SCH (19:08)
[2019-07-20] MEDS: ONDANSETRON 4 MG/2 ML INJ IV SCH (19:38)
[2019-07-20] MEDS ORDERED: ZOLPIDEM 5 MG TAB PO PRN (22:00)
[2019-07-21] MEDS: SODIUM CHLORIDE 0.9% 1000 ML 1,000 ML IV SCH (02:55)
[2019-07-21] MEDS: ONDANSETRON 4 MG/2 ML INJ IV SCH ×3 (04:00→20:52)
[2019-07-21 05:12] LABS: Alanine Aminotransferase 7 units/L (7-56); Albumin 3.2 g/dL (3.9-5); BUN/Creatinine Ratio 10; Blood Urea Nitrogen 4 mg/dL (7-17); Hemolysis Index 17
[2019-07-21] MEDS ORDERED: POTASSIUM CHLORIDE ER 20 MEQ TAB PO ONE (08:00)
[2019-07-21] MEDS: PRENATAL VIT27-FE FUMARATE-FOLIC ACID VIT TAB PO SCH (09:14)
--- NOTE | 2019-07-21 10:55 | History and Physical Report ---
History of Present Illness Date of examination: 07/21/19 Date of admission: 07/20/19 16:03 Chief complaint: Nausea, vomiting,and early History of present illness: This is a 19-year-old female nontoxic, well nourished in appearance, no acute signs of distress presents to the ED with c/o of pelvic pain, back pain, nausea and vomiting 1 week. Patient stated she is about 11 weeks . Denies any vaginal bleeding. Patient describes vomiting as food content. Patient denies any abdominal pain, chest pain, short of breath, fever, chills, headache, stiff neck, numbness or tingling. Patient has pain on urination . Patient denies any diarrhea or constipation. Patient denies any recent travels. Patient denies any drug allergies significant past medical history. Past History - Obstetrical History : 1 Medications and Allergies Allergies Allergy/AdvReac Type Severity Reaction Status Date / Time No Known Allergies Allergy Verified 04/28/19 15:35 Home Medications Medication Instructions Recorded Confirmed Last Taken Type No Known Home Medications [No 07/20/19 07/20/19 Unknown History Reported Home Medications] Active Meds: Active Medications Sodium Chloride (Nacl 0.9% 1000 Ml) 1,000 mls @ 125 mls/hr IV DIRECT ROCHELLE Last Admin: 07/21/19 02:55 Dose: 125 mls/hr Documented by: Potassium Chloride (Kcl 10meq/100ml) 10 meq in 100 mls @ 100 mls/hr IV Q1H COUNT INCLUDES THE [facility] Multivitamins/Iron/Calcium ( Vitamin) 1 each PO QDAY COUNT INCLUDES THE [facility] Last Admin: 07/21/19 09:14 Dose: 1 each Documented by: Ondansetron HCl (Zofran) 4 mg IV Q8H COUNT INCLUDES THE [facility] Last Admin: 07/21/19 04:00 Dose: 4 mg Documented by: Sodium Chloride (Nacl 0.9%) 125 ml IV DIRECT ROCHELLE Zolpidem Tartrate (Ambien) 5 mg PO QHS PRN PRN Reason: Sleep Review of Systems Genitourinary: dysuria, pelvic pain - Vital Signs Vital signs: Vital Signs Temp Pulse Resp BP Pulse Ox 98.4 F 100 H 18 105/69 100 07/20/19 11:58 07/20/19 11:58 07/20/19 11:58 07/20/19 11:58 07/20/19 11:58 Temp Pulse Resp BP Pulse Ox 98.2 F 73 20 89/55 100 07/21/19 04:38 07/21/19 04:38 07/21/19 04:38 07/21/19 04:38 07/21/19 04:38 - Physical Exam Abdomen: Positive: normal appearance, soft. Negative: guarding Results Result Diagrams: 07/20/19 12:53 07/21/19 04:20 Abnormal lab results 07/20/19 07/20/19 07/20/19 Range/Units 12:22 12:53 12:53 Hgb 14.7 H (10.1-14.3) gm/dl MCHC 35 H (30-34) % RDW 12.7 L (13.2-15.2) % Brooks % (Auto) 10.2 H (0.0-7.3) % VBG pH (7.320-7.420) Sodium 134 L (137-145) mmol/L Potassium 3.2 L (3.6-5.0) mmol/L Chloride 94.7 L (98-107) mmol/L Carbon Dioxide 16 L (22-30) mmol/L BUN 6 L (7-17) mg/dL Creatinine 0.6 L (0.7-1.2) mg/dL Calcium (8.4-10.2) mg/dL Alkaline Phosphatase (35-129) units/L Total Protein (6.3-8.2) g/dL Albumin (3.9-5) g/dL HCG, Quant (0-4) mIU/mL Urine WBC (Auto) 14.0 H (0.0-6.0) /HPF U Epithel Cells (Auto) 20.0 H (0-13.0) /HPF Urine HCG, Qual Positive A (Negative) 07/20/19 07/20/19 07/21/19 Range/Units 12:53 14:27 04:20 Hgb (10.1-14.3) gm/dl MCHC (30-34) % RDW (13.2-15.2) % Brooks % (Auto) (0.0-7.3) % VBG pH 7.243 L (7.320-7.420) Sodium 133 L (137-145) mmol/L Potassium 3.2 L (3.6-5.0) mmol/L Chloride (98-107) mmol/L Carbon Dioxide 15 L (22-30) mmol/L BUN 4 L (7-17) mg/dL Creatinine 0.4 L (0.7-1.2) mg/dL Calcium 8.0 L D (8.4-10.2) mg/dL Alkaline Phosphatase 33 L (35-129) units/L Total Protein 6.0 L (6.3-8.2) g/dL Albumin 3.2 L (3.9-5) g/dL HCG, Quant 51039 H (0-4) mIU/mL Urine WBC (Auto) (0.0-6.0) /HPF U Epithel Cells (Auto) (0-13.0) /HPF Urine HCG, Qual (Negative) All other labs normal. Assessment and Plan - Patient Problems (1) UTI (urinary tract infection) Current Visit: Yes Status: Acute Plan to address problem: Will rx empiric ampicillin for probable UTI.
[2019-07-21] MEDS ORDERED: AMPICILLIN 2 GM in SODIUM CHLORIDE 0.9% 50 ML IV ONE (10:57)
[2019-07-21] MEDS ORDERED: POTASSIUM CHLORIDE 10 MEQ 10 MEQ/100 ML BAG IV SCH (11:00)
[2019-07-21] MEDS ORDERED: AMPICILLIN 2 GM in SODIUM CHLORIDE 0.9% 100 ML IV ONE (12:00)
[2019-07-21] MEDS ORDERED: AMPICILLIN/NS 2 GM/100 ML 2 GM/100 ML BAG IV ONE (12:00)
[2019-07-21] MEDS ORDERED: AMPICILLIN/NS 1 GM/50 ML 1 GM/50 ML BAG IV SCH (14:00)
[2019-07-21] MEDS: POTASSIUM CHLORIDE 10 MEQ 10 MEQ/100 ML BAG IV SCH ×3 (14:00→17:55)
[2019-07-21] MEDS: AMPICILLIN/NS 1 GM/50 ML 1 GM/50 ML BAG IV SCH (20:52)
[2019-07-22] MEDS: AMPICILLIN/NS 1 GM/50 ML 1 GM/50 ML BAG IV SCH ×3 (02:21→11:37)
[2019-07-22] MEDS: SODIUM CHLORIDE 0.9% 1000 ML 1,000 ML IV SCH (02:21)
[2019-07-22] MEDS: ONDANSETRON 4 MG/2 ML INJ IV SCH (05:54)
[2019-07-22 10:32] LABS: BUN/Creatinine Ratio 10; Blood Urea Nitrogen 3 mg/dL (7-17); Calcium 8.3 mg/dL (8.4-10.2); Hemolysis Index 0
[2019-07-22] MEDS ORDERED: POTASSIUM CHLORIDE ER 20 MEQ TAB PO ONE (10:53)
[2019-07-22] MEDS: PRENATAL VIT27-FE FUMARATE-FOLIC ACID VIT TAB PO SCH (11:36)
--- NOTE | 2019-07-22 12:21 | Progress Note ---
Assessment and Plan - Patient Problems (1) 11 weeks gestation of Onset Date: 07/22/19 Current Visit: Yes Status: Acute Plan to address problem: A: IUP @ 11 weeks Hyperemesis - resolved UTI - resolved P: May go home today. (2) Hyperemesis gravidarum Onset Date: 07/22/19 Current Visit: Yes Status: Resolved (3) UTI (urinary tract infection) Onset Date: 07/22/19 Current Visit: Yes Status: Resolved Qualifiers: Urinary tract infection type: acute cystitis Hematuria presence: without hematuria Qualified Code(s): N30.00 - Acute cystitis without hematuria Subjective - Subjective Date of service: 07/22/19 Principal diagnosis: IUP @ 11 weeks; UTI Interval history: This is a 19-year-old female nontoxic, well nourished in appearance, no acute signs of distress presented to the ED with c/o of pelvic pain, back pain, nausea and vomiting 1 week. Patient stated she is about 11 weeks . Denies any vaginal bleeding. Patient describes vomiting as food content. Patient denies any abdominal pain, chest pain, short of breath, fever, chills, headache, stiff neck, numbness or tingling. Patient has pain on urination . Patient denies any diarrhea or constipation. Patient denies any recent travels. Patient denies any drug allergies significant past medical history. Since admission she is feeling much better. She is tolerating a reg diet without nausea or vomiting, and ready to go home. Patient reports: no new complaints, no loss of fluid, no vaginal bleeding, no contractions Objective - Vital Signs Vital Signs: Vital Signs - 12hr 07/22/19 07/22/19 07/22/19 00:25 05:27 07:36 Temperature 98.2 F 98.8 F 98.5 F Pulse Rate 99 H 84 86 Respiratory 20 20 18 Rate Blood Pressure 106/55 100/53 100/57 O2 Sat by Pulse 99 100 99 Oximetry 07/22/19 08:00 Temperature Pulse Rate Respiratory 20 Rate Blood Pressure O2 Sat by Pulse Oximetry - Exam Breasts: deferred Abdomen: Present: normal appearance, soft Uterus: Present: normal - Labs Labs: Abnormal Labs 07/20/19 07/20/19 07/20/19 12:22 12:53 12:53 Hgb 14.7 H MCHC 35 H RDW 12.7 L Teller % (Auto) 10.2 H VBG pH Sodium 134 L Potassium 3.2 L Chloride 94.7 L Carbon Dioxide 16 L BUN 6 L Creatinine 0.6 L Calcium Alkaline Phosphatase Total Protein Albumin HCG, Quant Urine WBC (Auto) 14.0 H U Epithel Cells (Auto) 20.0 H Urine HCG, Qual Positive A 07/20/19 07/20/19 07/21/19 12:53 14:27 04:20 Hgb MCHC RDW Teller % (Auto) VBG pH 7.243 L Sodium 133 L Potassium 3.2 L Chloride Carbon Dioxide 15 L BUN 4 L Creatinine 0.4 L Calcium 8.0 L D Alkaline Phosphatase 33 L Total Protein 6.0 L Albumin 3.2 L HCG, Quant 88525 H Urine WBC (Auto) U Epithel Cells (Auto) Urine HCG, Qual 07/22/19 09:21 Hgb MCHC RDW Teller % (Auto) VBG pH Sodium 135 L Potassium 3.5 L Chloride Carbon Dioxide 18 L BUN 3 L Creatinine 0.3 L Calcium 8.3 L Alkaline Phosphatase Total Protein Albumin HCG, Quant Urine WBC (Auto) U Epithel Cells (Auto) Urine HCG, Qual Laboratory Results - last 24 hr 07/22/19 09:21 Sodium 135 L Potassium 3.5 L Chloride 103.7 Carbon Dioxide 18 L Anion Gap 17 BUN 3 L Creatinine 0.3 L Estimated GFR > 60 BUN/Creatinine Ratio 10 Glucose 94 Calcium 8.3 L Microbiology 07/20/19 Unknown Urine,Clean Catch Urine Culture - Final
--- NOTE | 2019-07-22 12:32 | Discharge Summary ---
Providers - Providers Date of Admission: 07/20/19 16:03 Date of discharge: 07/22/19 Attending physician: WING MEDLEY MD Primary care physician: [facility] Hospitalization Reason for admission: IUP - , observation, other (IUP @ 11 weeks; Hyperemesisi; UTI) Episiotomy: none Laceration: none Other procedures: none complications: none Discharge diagnosis: other (IUP @ 11 weeks; Hyperemesis - resolved; UTI - resolved) Hospital course: Unremarkable. Condition at discharge: Good Disposition: DC-01 TO HOME OR SELFCARE - Discharge Diagnoses (1) 11 weeks gestation of Status: Acute (2) Hyperemesis gravidarum Status: Resolved (3) UTI (urinary tract infection) Status: Resolved Qualifiers: Urinary tract infection type: acute cystitis Hematuria presence: without hematuria Qualified Code(s): N30.00 - Acute cystitis without hematuria Plan - Discharge Medications Prescriptions: Ampicillin 500 mg PO Q6H #20 capsule - Provider Discharge Summary Activity: routine, no sex for 6 weeks, no heavy lifting 4 weeks, no strenuous exercise Diet: routine Instructions: routine Additional instructions: [] Smoking cessation referral if applicable(refer to patient education folder for contact #) [] Refer to [facility] Booklet Call your doctor immediately for: * Fever > 100.5 * Heavy vaginal bleeding ( >1 pad per hour) * Severe persistent headache * Shortness of breath * Reddened, hot, painful area to leg or breast * Drainage or odor from incision. * Keep incision clean and dry at all times and follow doctor's instructions regarding bathing/showering - Follow up plan Follow up: PRIMARY CARE, [Primary Care Provider] - 3-5 Days WING MEDLEY MD [Staff Physician] - 7 Days (lana Goff
[2019-07-22 17:54] VITALS: BP 94/55
== END 2019-07-22 17:30 | disposition home or self-care (01) | DRG 832 ==
LOC: ED 11:13 → OB 16:03
PROVIDERS: ADMIT Obstetrics & Gynecology; ATTEND Obstetrics & Gynecology
DX: O21.1 Hyperemesis gravidarum with metabolic disturbance (principal); O23.11 Infections of bladder in pregnancy, first trimester; Z3A.11 11 weeks gestation of pregnancy
CPT/HCPCS: 36415; 76801; 80048; 80053; 81001; 81025; 82805; 84702; 85025; 87086; 96365; 96366; 96367; 96375; G0378; J0290; J2405; J2765; J3480; J7030

== ENCOUNTER 2020-02-02 10:24 | Inpatient (IN) | payer MEDICAID ==
[2020-02-02] MEDS ORDERED: BUTORPHANOL 2 MG/1 ML INJ IV PRN (12:01)
[2020-02-02] MEDS ORDERED: fentaNYL 100 MCG/2 ML INJ IV PRN (12:01)
[2020-02-02] MEDS ORDERED: ePHEDrine SULFATE 50 MG/1 ML INJ IV PRN (12:01)
[2020-02-02] MEDS ORDERED: LIDOCAINE (2%) 20 MG/1 ML VIAL 20 ML MDV INFILTRATI ONE (12:01)
[2020-02-02] MEDS ORDERED: MINERAL OIL 30 ML ORAL LIQD PO PRN (12:01)
[2020-02-02] MEDS ORDERED: TERBUTALINE 1 MG/1 ML INJ SUB-Q PRN (12:01)
[2020-02-02] MEDS ORDERED: TERBUTALINE 1 MG/1 ML INJ IVP PRN (12:01)
[2020-02-02] MEDS ORDERED: ONDANSETRON 4 MG/2 ML INJ IV PRN ×2 (12:01→18:33)
[2020-02-02] MEDS ORDERED: OXYTOCIN 20 UNIT/1000ML DRIP 20 UNITS/1,000 ML BAG IV SCH ×2 (13:00→18:33)
[2020-02-02] MEDS ORDERED: OXYTOCIN DRIP 30 UNITS/500 ML BAG IV SCH (13:00)
[2020-02-02] MEDS ORDERED: LACTATED RINGERS 1,000 ML IV SCH (13:00)
[2020-02-02 13:20] LABS: Hematocrit 36.7 % (30.3-42.9); Hemoglobin 12.5 gm/dl (10.1-14.3); Mean Corpuscular HGB Conc 34 % (30-34); Mean Corpuscular Volume 89 fl (79-97); Platelet Count 210 K/mm3 (140-440); Red Blood Count 4.13 M/mm3 (3.65-5.03); Red Cell Distribution Width 13.5 % (13.2-15.2)
[2020-02-02] MEDS ORDERED: OXYTOCIN 10 UNIT/1 ML INJ ONE (13:22)
[2020-02-02] MEDS ORDERED: METHYLERGONOVINE MALEATE 0.2 MG/ML VIAL IM ONE ×2 (13:23→14:55)
--- NOTE | 2020-02-02 13:38 | History and Physical Report ---
History of Present Illness Date of examination: 02/02/20 Date of admission: 02/02/20 10:25 Chief complaint: contractions History of present illness: Pt is a 19 year old -Beninese female ERIC 01/30/20 at 40w3d who presents with regular contractions for the past two days and advanced cervical dilation of 7 cm. She denies leakage of fluid or vaginal bleeding. She has had care at [facility] since 15 wks that has been complicated by subchorionic hematoma and complex left ovarian cyst in first trimester. She is GBS Negative. Past History Past Medical History: no pertinent history Past Surgical History: no surgical history Family/Genetic History: none Social history: no significant social history - Obstetrical History Expected Date of Delivery: 01/30/20 Actual Gestation: 40 Week(s) 3 Day(s) : 2 Para: 1 Hx # Term Pregnancies: 1 Number of Pregnancies: 0 Spontaneous Abortions: 0 Induced : 0 Number of Living Children: 1 Medications and Allergies Allergies Allergy/AdvReac Type Severity Reaction Status Date / Time No Known Allergies Allergy Verified 04/28/19 15:35 Home Medications Medication Instructions Recorded Confirmed Last Taken Type Ampicillin 500 mg PO Q6H #20 capsule 07/22/19 Unknown Rx Active Meds: Active Medications Butorphanol Tartrate (Stadol) 1 mg IV Q2H PRN PRN Reason: Pain, Moderate(4-6) LABOR PAIN Ephedrine Sulfate (Ephedrine Sulfate) 10 mg IV Q2M PRN PRN Reason: Hypotension Fentanyl (Sublimaze) 100 mcg IV Q2H PRN PRN Reason: Pain,Severe (7-10) LABOR PAIN Oxytocin/Sodium Chloride (Pitocin/Ns 20 Unit/1000ml Drip) 20 units in 1,000 mls @ 125 mls/hr IV DIRECT ROCHELLE Oxytocin/Sodium Chloride (Pitocin/Ns 30 Unit/500ml) 30 units in 500 mls @ 2 mls/hr IV TITR ROCHELLE; Protocol Lactated Ringer's (Lactated Ringers) 1,000 mls @ 125 mls/hr IV DIRECT ROCHELLE Mineral Oil (Mineral Oil) 30 ml PO QHS PRN PRN Reason: Constipation Ondansetron HCl (Zofran) 4 mg IV Q8H PRN PRN Reason: Nausea And Vomiting Terbutaline Sulfate (Brethine) 0.25 mg SUB-Q ONCE PRN PRN Reason: Hyperstimulation/Hypertonicity Terbutaline Sulfate (Brethine) 0.25 mg IVP ONCE PRN PRN Reason: Hyperstimulation/Hypertonicity Review of Systems All systems: negative - Vital Signs Vital signs: Vital Signs Pulse Pulse Ox 75 99 02/02/20 11:37 02/02/20 11:37 Temp Pulse Resp BP Pulse Ox 98.5 F 70 107/55 91 02/02/20 11:51 02/02/20 13:24 02/02/20 13:24 02/02/20 12:04 - Physical Exam Breasts: Positive: deferred Abdomen: Positive: soft (gravid ) Genitourinary (Female): Positive: normal external genitalia Uterus: Positive: enlarged (gravid ) Extremities: Positive: normal - Obstetrical FHR: auscultation normal Cervical Dilatation: 9.5 Cervical Effacement Percentage: 100 station: -1 Uterine Contraction Pattern: Regular Uterine Tone Measurement Phase: Resting Uterine Contraction Intensity: Moderate Results Result Diagrams: 02/02/20 12:53 All other labs normal. Assessment and Plan A: IUP at 40w2d Active labor GBS Negative P: Admit to labor and delivery AROM- scant clear fluid Anticipate vaginal delivery
--- NOTE | 2020-02-02 13:51 | Procedure Note ---
OB Delivery Note - Delivery Date of Delivery: 02/02/20 Surgeon: JOE OSCAR Estimated blood loss: other (400 mL) - Vaginal Delivery presentation: vertex Delivery position: OA Intrapartum events: decreased FHT variability, mult.variable deceleratio, uterine atony Delivery induction: none Delivery augmentation: rupture of membranes Delivery monitor: external FHT, external uterine Route of delivery: Delivery placenta: spontaneous Delivery cord: nuchal cord (x1 ) Episiotomy: none Delivery laceration: other (vaginal abrasion, hemstatic without repair ) Anesthesia: none Delivery comments: Pt progressed to complete/complete/0 and pushed to deliver a viable male over intact perineum via spontaneous vaginal delivery under no anesthesia. Head delivered in KIRILL position. Tight nuchal cord x1 doubly clamped, cut and reduced. Shoulders and body delivered without difficulty. taken to NICU staff in attendance and bulb suctioned. Cord blood collected. Placenta delivered spontaneously (3VC, intact). Uterine atony noted and IV out. Pitocin 10 units IM and Methergine 0.2 mg IM administered. Vagina and perineum explored. Perineal abrasion noted to be hemostatic without repair. EBL 400 mL. - A at 1 minute: 8 at 5 minutes: 9 Infant Gender: Male (2620g (5lb 12 oz) @ 1315 pm)
[2020-02-02] MEDS ORDERED: OXYTOCIN 10 UNIT/1 ML INJ IM ONE (14:55)
[2020-02-02] MEDS ORDERED: HYDROcodone/ACETAMINOPHEN 5-325 MG TAB PO PRN (18:33)
[2020-02-02] MEDS ORDERED: BENZOCAINE/MENTHOL 20/0.5% TOP SPRAY 56 GM TP PRN (18:33)
[2020-02-02] MEDS ORDERED: diphenhydrAMINE 25 MG CAP PO PRN (18:33)
[2020-02-02] MEDS ORDERED: PROMETHAZINE 25 MG TAB PO PRN (18:33)
[2020-02-02] MEDS ORDERED: WITCH HAZEL/ GLYCERIN PAD TP PRN (18:33)
[2020-02-02] MEDS ORDERED: PROMETHAZINE 25 MG RECT SUPP PR PRN (18:33)
[2020-02-02] MEDS ORDERED: ACETAMINOPHEN 325 MG TAB PO PRN (18:33)
[2020-02-02] MEDS ORDERED: LANOLIN/ZINC/DIMETHICONE (LANSINOH) 7 GM TP PRN ×2 (18:33)
[2020-02-02] MEDS ORDERED: MAGNESIUM HYDROXIDE (MOM) ORAL LIQD UDC PO PRN (18:33)
[2020-02-02] MEDS: IBUPROFEN 600 MG TAB PO SCH ×2 (18:52→23:24)
[2020-02-02] MEDS: FERROUS SULFATE 325 MG TAB PO SCH (23:21)
[2020-02-03] MEDS: IBUPROFEN 600 MG TAB PO SCH ×3 (05:23→18:05)
[2020-02-03 05:48] LABS: Hematocrit 29.1 % (30.3-42.9); Hemoglobin 9.8 gm/dl (10.1-14.3)
[2020-02-03] MEDS: FERROUS SULFATE 325 MG TAB PO SCH (10:30)
--- NOTE | 2020-02-03 13:02 | Progress Note ---
Assessment and Plan A: PPD#1 s/p at term, Uterine atony P: Routine care. PO Methergine course. Monitor bleeding curve. Subjective - Subjective Date of service: 02/03/20 Principal diagnosis: s/p at term, Uterine atony Interval history: Pt without complaints at this time. Patient reports: appetite normal, voiding normally, pain well controlled, ambulating normally, no dizzy ambulation [place]: doing well Objective - Vital Signs Latest vital signs: Vital Signs Temp Pulse Resp BP BP Pulse Ox 02/03/20 08:36 97.9 F 86 18 94/53 98 02/03/20 01:37 98.4 F 82 20 92/49 99 02/02/20 20:11 98.0 F 89 20 111/84 99 02/02/20 15:30 98.7 F 63 20 97/59 02/02/20 14:21 68 104/63 02/02/20 14:19 82 98/61 02/02/20 14:06 76 107/68 02/02/20 14:04 80 111/71 02/02/20 14:00 96 H 111/64 02/02/20 13:51 69 106/60 02/02/20 13:34 68 116/56 02/02/20 13:24 70 107/55 Intake and Output 02/02/20 02/03/20 02/03/20 22:59 06:59 14:59 Intake Total 360 120 Output Total 600 Balance -240 120 Intake: Intake, Free Water 360 120 Output: Urine 600 Void 600 Other: Total, Output Amount 300 # Voids Void 1 - Exam Breasts: Present: deferred Abdomen: Present: soft Uterus: Present: fundal height at umbilicus Extremities: Present: normal - Labs Labs: Abnormal lab results 02/03/20 Range/Units 04:12 Hgb 9.8 L (10.1-14.3) gm/dl Hct 29.1 L D (30.3-42.9) %
[2020-02-03] MEDS ORDERED: DIPHtheria,PERTUSSIS(ACELL),TETANUS VACCINE/PF 0.5 ML VIAL IM ONE (13:51)
[2020-02-03] MEDS ORDERED: MEASLES, MUMPS & RUBELLA 12,500 UNIT/0.5 ML VACCINE SUB-Q ONE (13:51)
[2020-02-03] MEDS ORDERED: METHYLERGONOVINE 0.2 MG TABLET PO SCH (18:00)
[2020-02-04] MEDS: FERROUS SULFATE 325 MG TAB PO SCH ×2 (00:08→10:19)
[2020-02-04] MEDS: IBUPROFEN 600 MG TAB PO SCH ×3 (00:08→12:51)
[2020-02-04] MEDS: METHYLERGONOVINE 0.2 MG TABLET PO SCH ×2 (03:44→10:19)
--- NOTE | 2020-02-04 09:39 | Progress Note ---
Assessment and Plan A: PPD#2 s/p at term, Uterine atony improved P: Routine care. Discharge today with follow up with Jenifer Renteria CNM in 4 wks. Subjective - Subjective Date of service: 02/04/20 Principal diagnosis: s/p at term, Uterine atony Interval history: Pt reports scant lochia after PO Methergine course. Otherwise no complaints. Patient reports: appetite normal, voiding normally, pain well controlled, ambulating normally : doing well Objective - Vital Signs Latest vital signs: Vital Signs Temp Pulse Resp BP Pulse Ox 02/03/20 18:01 97.8 F 87 18 95/53 97 Intake and Output 02/03/20 02/04/20 02/04/20 22:59 06:59 14:59 Intake Total 360 600 Balance 360 600 Intake: Oral 240 Intake, Free Water 360 360 Other: Total, Intake Amount 240 # Voids Void 3 1 - Exam Breasts: Present: deferred
--- NOTE | 2020-02-04 09:43 | Discharge Summary ---
Providers - Providers Date of Admission: 02/02/20 10:25 Date of discharge: 02/04/20 Attending physician: JOE OSCAR Primary care physician: JOE OSCAR Hospitalization Reason for admission: active labor Delivery: Procedure details: Please see delivery note. Episiotomy: none Laceration: other (perineal abrasion- hemostatic without repair ) Other procedures: none complications: none Discharge diagnosis: IUP at term delivered [place] baby: male Hospital course: Pt was admitted in active labor and went on to have a spontaneous vaginal delivery which she tolerated well. Her course was complicated by uterine atony s/p Methergine series. Her bleeding was scant upon discharge. She met discharge criteria on PPD#2 and will follow up in 4 wks with John Fajardo CNM. Condition at discharge: Stable Disposition: - TO HOME OR SELFCARE - Discharge Diagnoses (1) Active labor Status: Acute (2) Term of male Status: Acute (3) Uterine atony Status: Acute (4) Acute blood loss anemia Status: Acute Plan - Discharge Medications Prescriptions: Ferrous Sulfate [Feosol 325 MG tab] 325 mg PO BID #60 tablet Ibuprofen [Motrin] 800 mg PO Q8HR PRN #30 tablet PRN Reason: Pain, Moderate (4-6) HYDROcodone/APAP 5-325 [[place] 5/325] 1 each PO Q6HR PRN #20 tablet PRN Reason: Pain - Provider Discharge Summary Activity: routine, no sex for 6 weeks, no heavy lifting 4 weeks, no strenuous exercise Diet: routine Instructions: routine Additional instructions: [] Smoking cessation referral if applicable(refer to patient education folder for contact #) [] Refer to [facility] Booklet Call your doctor immediately for: * Fever > 100.5 * Heavy vaginal bleeding ( >1 pad per hour) * Severe persistent headache * Shortness of breath * Reddened, hot, painful area to leg or breast * Drainage or odor from incision. * Keep incision clean and dry at all times and follow doctor's instructions regarding bathing/showering - Follow up plan Follow up: JOHN FAJARDO CNM [Advanced Practice Nurse] - 03/05/20 (Please call for exam. Please schedule your son's circumcision before he is one month old. )
[2020-02-04 15:32] VITALS: BP 92/55
== END 2020-02-04 16:10 | disposition home or self-care (01) | DRG 775 ==
LOC: TRG 10:24 → LD 10:24 → APU 10:28 → TRG 12:07 → OB 18:23
PROVIDERS: ADMIT Obstetrics & Gynecology; ATTEND Obstetrics & Gynecology
PROC: 10E0XZZ Delivery of Products of Conception, External Approach (ICD-10-PCS; principal; 2020-02-02)
PROC: 3E0234Z Introduction of Serum, Toxoid and Vaccine into Muscle, Percutaneous Approach (ICD-10-PCS; 2020-02-03)
PROC: 3E0134Z Introduction of Serum, Toxoid and Vaccine into Subcutaneous Tissue, Percutaneous Approach (ICD-10-PCS; 2020-02-03)
DX: O76 Abnormality in fetal heart rate and rhythm complicating labor and delivery (principal); Z3A.40 40 weeks gestation of pregnancy; Z37.0 Single live birth; Z23 Encounter for immunization; D62 Acute posthemorrhagic anemia; O62.2 Other uterine inertia; O90.81 Anemia of the puerperium; O69.81X0 Labor and delivery complicated by cord around neck, without compression, not applicable or unspecified; O71.89 Other specified obstetric trauma
CPT/HCPCS: 36415; 85014; 85018; 85027; 86850; 86900; 86901; G0378; J2210; J2590; J7120